=== PATIENT | male | born 1990 | race Hispanic/Latino ===

== ENCOUNTER 2022-07-26 18:37 | Emergency (ER) | payer BC, SELFPAY ==
[2022-07-26] MEDS ORDERED: Boostrix 0.5 ML (Tdap) VIAL (>/=7 yrs of age) ONE (19:22)
== END 2022-07-26 21:06 | disposition home or self-care (01) ==
LOC: ERS 18:37
DX: S51.032A Puncture wound without foreign body of left elbow, initial encounter (principal); M79.642 Pain in left hand; W22.01XA Walked into wall, initial encounter; Z23 Encounter for immunization
CPT/HCPCS: 90471; 90715